=== PATIENT | female | born 1995 | race Caucasian/White ===

== ENCOUNTER 2017-01-16 20:03 | Emergency (ER) | payer SELFPAY ==
--- NOTE | 2017-01-16 20:41 | ER Document Report ---
ED Medical Screen (RME) - General Stated Complaint: FALL,KNEE PAIN Time seen by provider: 20:36 Notes: Patient states she fell on her left knee last night. Ice packs helped some and patient has taken ibuprofen which has provided little relief. I have greeted and performed a rapid initial assessment of this patient. A comprehensive ED assessment and evaluation of the patient, analysis of test results and completion of the medical decision making process will be conducted by additional ED providers. - Related Data Allergies/Adverse Reactions: No Known Allergies Allergy (Verified 01/16/17 20:39) Past Medical History - Immunizations Hx Diphtheria, Pertussis, Tetanus Vaccination: Yes Physical Exam - Extremities Notes: Pain to his left medial knee on palpation. Pain with ROM.
--- NOTE | 2017-01-16 22:21 | ER Document Report ---
HPI - HPI Patient complains to provider of: knee pain Pain Level: 4 Context: Patient is a 21-year-old female presents by Department complaining of acute knee pain. Patient states that she has a concert last evening when she was standing and dancing when she fell pain in her left knee gave out. She describes the motion is more of a swaying. Admits to pain on the outside of her left knee. Patient admits to previous tear that did not require surgery on the medial meniscus of the left knee. Patient has been taking [id number] ibuprofen using ice and elevating as much as she can. Able to bear weight able to flex and extend the knee but with pain. - REPRODUCTIVE LMP: 01/12/17 Reproductive: DENIES: : - DERM Skin Color: Normal, [place] Past Medical History - Social History Smoking Status: Never Smoker Chew tobacco use (# tins/day): No Frequency of alcohol use: Social Drug Abuse: None Family History: Reviewed & Not Pertinent Renal/ Medical History: Denies: Hx Peritoneal Dialysis - Immunizations Hx Diphtheria, Pertussis, Tetanus Vaccination: Yes Vertical Provider Document - CONSTITUTIONAL Agree With Documented VS: Yes Exam Limitations: No Limitations General Appearance: WD/WN, No Apparent Distress - INFECTION CONTROL TRAVEL OUTSIDE OF THE [place] IN LAST 30 DAYS: No - RESPIRATORY O2 Sat by Pulse Oximetry: 97 - CARDIOVASCULAR Pulses: Normal: Popliteal, Dorsalis pedis - MUSCULOSKELETAL/EXTREMETIES Musculoskeletal/Extremeties: MAEW, FROM, Tender - On the aspect of the left knee , No Edema. negative: Eccymosis Notes: Negative anterior and posterior drawer. Negative varus and valgus for pain to palpation of the lateral aspect of the knee. Positive Lyndon's test of medial aspect. Negative Homans - NEURO Level of Consciousness: Awake, Alert, Appropriate Motor/Sensory: No Motor Deficit, No Sensory Deficit - DERM Integumentary: Warm, Dry, No Rash Course - Re-evaluation Re-evalutation: 01/16/17 22:17 Patient is a 20-year-old female is admitted in stable, no acute distress and afebrile. Concern today for internal knee injury. Will discharge patient home with crutches with instructions for elevation, ice and anti-inflammatories. Can follow-up with orthopedics - Vital Signs Vital signs: Temp Pulse Resp BP Pulse Ox 97.8 F 105 H 20 156/105 H 97 03/03/17 20:39 01/16/17 20:39 01/16/17 20:39 01/16/17 20:39 01/16/17 20:39 - Diagnostic Test Radiology reviewed: Image reviewed, Reports reviewed Discharge - Discharge Clinical Impression: Knee pain Qualifiers: Laterality: left Chronicity: acute Qualified Code(s): M25.562 - Pain in left knee Condition: Good Disposition: HOME, SELF-CARE Instructions: Suspected Internal Knee Injury ([facility]), Use of Crutches ([facility]), Ice & Elevation ([facility]), Sprained Knee ([facility]) Prescriptions: Ibuprofen [Motrin 800 mg Tablet] 800 mg PO Q8HP PRN #30 tab PRN Reason: Forms: Elevated Blood Pressure, Return to Work, Special Work Note Referrals: ORTHOPEDICS [Provider Group] - Follow up as needed
[2017-01-16 23:03] VITALS: BP 122/68
== END 2017-01-16 23:02 | disposition home or self-care (01) ==
LOC: ER 20:03
DX: M25.562 Pain in left knee (principal); W19.XXXA Unspecified fall, initial encounter
CPT/HCPCS: 99283

== ENCOUNTER 2017-07-28 08:06 | Emergency (ER) | payer SELFPAY ==
--- NOTE | 2017-07-28 08:41 | ER Document Report ---
ED GI/ - General Chief Complaint: Flank Pain Stated Complaint: LOW BACK PAIN Time Seen by Provider: 07/28/17 08:29 Notes: Patient is a 21-year-old female presents emergency department complaining of sudden onset left flank pain started about 2 AM that woke her up. Patient describes her pain as a constant underlying ache with intermittent sharp stabbing pain. Patient states that since last Thursday she has been having urinary frequency, hesitancy that initially resolved with [id number] Azo but then returned yesterday more severe. She denies any fever, chills, nausea, vomiting, diarrhea, constipation. She does admit to left flank pain and suprapubic pain worse on the left side. She denies any hematuria or pyuria. She does admit to vaginal discharge that she noticed yesterday that is thick and clumpy. Patient states that she is newly sexually active she denies any past history of sexually transmitted diseases, states that her sexual partner denies any history of sexually transmitted disease and was not tested prior to their relationship. She states that her last menstrual period was July 04 of this year. She has never been . Denies any past medical history Past surgical history significant for tonsils and adenoids, ventilatory tubes as a child Social history denies any tobacco or drug use. Admits to occasional alcohol use. She is an employee at [employer]. Does not have a primary care provider, denies any allergies TRAVEL OUTSIDE OF THE [place] IN LAST 30 DAYS: No - Related Data Allergies/Adverse Reactions: No Known Allergies Allergy (Verified 07/28/17 08:12) Past Medical History - Social History Smoking Status: Never Smoker Chew tobacco use (# tins/day): No Frequency of alcohol use: Occasional Drug Abuse: Marijuana Family History: Reviewed & Not Pertinent Renal/ Medical History: Denies: Hx Peritoneal Dialysis Surgical Hx: Negative - Immunizations Hx Diphtheria, Pertussis, Tetanus Vaccination: Yes Review of Systems - Review of Systems Notes: REVIEW OF SYSTEMS: CONSTITUTIONAL : Denies fever, chills, or sweats. Denies recent illness. EENT: Denies eye, ear, throat, or mouth pain or symptoms. Denies nasal or sinus congestion or discharge. Denies throat, tongue, or mouth swelling or difficulty swallowing. CARDIOVASCULAR: Denies chest pain. Denies palpitations or racing or irregular heart beat. Denies ankle edema. RESPIRATORY: Denies cough, cold, or chest congestion. Denies shortness of breath, difficulty breathing, or wheezing. GASTROINTESTINAL: Denies abdominal pain or distention. Denies nausea, vomiting , or diarrhea. Denies blood in vomitus, stools, or per rectum. Denies black, tarry stools. Denies constipation. GENITOURINARY: See HPI FEMALE GENITOURINARY: See HPI MUSCULOSKELETAL: Denies any muscle spasms, difficulty walking, extremity pain SKIN: Denies rash, lesions or sores. HEMATOLOGIC : Denies easy bruising or bleeding. LYMPHATIC: Denies swollen, enlarged glands. NEUROLOGICAL: Denies confusion or altered mental status. Denies passing out or loss of consciousness. Denies dizziness or lightheadedness. Denies headache. Denies weakness or paralysis or loss of use of either side. Denies problems with gait or speech. Denies sensory loss, numbness, or tingling. Denies seizures. PSYCHIATRIC: Denies anxiety or stress. Denies depression, suicidal ideation, or homicidal ideation. ALL OTHER SYSTEMS REVIEWED AND NEGATIVE. Dictation was performed using [employer] voice recognition software Physical Exam - Vital signs Vitals: Temp Pulse Resp BP Pulse Ox 98.0 F 104 H 18 185/83 H 96 07/28/17 08:10 07/28/17 08:10 07/28/17 08:10 07/28/17 08:10 07/28/17 08:10 - Notes Notes: PHYSICAL EXAM GENERAL: Alert, interacts well. HEAD: Normocephalic, atraumatic. EYES: Pupils equal, round, and reactive to light. Extraocular movements intact. ENT: Oral mucosa moist, tongue midline. NECK: Full range of motion. Supple. Trachea midline. LUNGS: Clear to auscultation bilaterally, no wheezes, rales, or rhonchi. No respiratory distress. HEART: Regular rate and rhythm. No murmurs, gallops, or rubs. ABDOMEN: Soft, obese nondistended, mild suprapubic tenderness. No guarding, rebound, or rigidity.. Bowel sounds present in all 4 quadrants. FEMALE : Normal external exam. No evidence of lesions, lacerations, bruising or vesicles. Speculum exam normal cervix closed. Evidence of white thick vaginal discharge without odor. No evidence of lesions. No vaginal bleeding. Bimanual exam normal no cervical motion tenderness. No adnexal mass or adnexal tenderness. Back: EXTREMITIES: Moves all 4 extremities spontaneously. No edema, radial and dorsalis pedis pulses 2/4 bilaterally. No cyanosis. Mild left CVA tenderness, negative for right CVA tenderness, no paraspinous muscle tenderness or spinous process tenderness, deformities, step-offs NEUROLOGICAL: Alert and oriented x4. Normal speech. PSYCH: Normal affect, normal mood. SKIN: Warm, dry, normal turgor. No rashes or lesions noted. Course - Re-evaluation Re-evalutation: 07/28/17 11:34 Patient is a 21-year-old female who is hemodynamically stable, no acute distress and afebrile. CBC stable without any evidence for leukocytosis or anemia. White blood cell count of 12.1 without evidence of left shift. BMP stable without any evidence of renal injury. Urinalysis indicates pyelonephritis given presence of white blood cell clumps. Beta-hCG is negative. Patient tolerating p.o. without any difficulty. Patient to be discharged home on p.o. antibiotics and coverage for yeast given yeast present on wet mount. At this time patient requesting to be discharged and called for follow-up regarding chlamydia and gonorrhea test. Declining treatment at this time. Discussed with patient strict return precautions. She agrees with plan. - Vital Signs Vital signs: Temp Pulse Resp BP Pulse Ox 98.0 F 104 H 18 185/83 H 96 07/28/17 08:10 07/28/17 08:10 07/28/17 08:10 07/28/17 08:10 07/28/17 08:10 - Laboratory Result Diagrams: 07/28/17 10:15 07/28/17 10:15 Laboratory results interpreted by me: 07/28/17 07/28/17 08:33 10:15 WBC 12.1 H Seg Neutrophils % 79.8 H Lymphocytes % 11.7 L Absolute Neutrophils 9.7 H Urine Protein 100 H Urine Blood MODERATE H Ur Leukocyte Esterase LARGE H Discharge - Discharge Clinical Impression: Pyelonephritis, Vaginal candidiasis Condition: Good Disposition: HOME, SELF-CARE Additional Instructions: PYELONEPHRITIS: Your evaluation shows evidence of pyelonephritis. This is an infection in the kidney. Typical symptoms are fever, pain in the flank, pain on urination, and frequent urination. Many cases of pyelonephritis can be treated at home. Hospital care may be necessary for patients who are very ill, or elderly or . Pyelonephritis is treated with antibiotics. Be sure to take all the medication as prescribed. Drink plenty of liquids (about three quarts per day) . You may take acetaminophen for fever. You should feel significantly improved within two days. You should have a recheck of your urine in about one week to insure that the infection is gone. Return for a re-examination if your symptoms worsen in any way -- such as high fever, shaking chills, severe weakness or dizziness, severe pain, or inability to pass your urine. ANTIBIOTIC THERAPY You have been given an antibiotic prescription. It's important that you take all the medication, unless instructed otherwise by your physician. Failure to complete the entire course can result in relapse of your condition. Common side effects of antibiotics include nausea, intestinal cramping, or diarrhea. Women may develop vaginal yeast infections, and babies can get yeast (thrush) in the mouth following the use of antibiotics. Contact your physician if you develop significant side effects from this medication. Allergy to this antibiotic can result in hives, wheezing, faintness, or itching. If symptoms of allergy occur, stop the medication and call the doctor. CIPROFLOXACIN: You have been given an antibacterial agent, ciprofloxacin (Cipro). This medicine is not related to the penicillins, sulfas, cephalosporins, or tetracyclines. It is often given to patients who are allergic to these drugs. It has been chosen for you either because other drugs are not appropriate, or because of the nature of your problem. Cipro should not be taken with antacids, as these can decrease its effectiveness. It can be taken without regard to meals. CIPRO SHOULD NOT BE TAKEN BY CHILDREN, NURSING WOMEN, OR WOMEN. Although Cipro is usually well-tolerated, common side effects can include nausea and diarrhea. Contact your doctor if you experience any unusual symptoms while on this medication, such as joint pain or swelling, shortness of breath, wheezing, faintness, or hives. USE OF ACETAMINOPHEN (Tylenol): Acetaminophen may be taken for pain relief or fever control. It's much safer than aspirin, offering a wider range of "safe" dosages. It is safe during . Some brand names are Tylenol, Panadol, Datril, Anacin 3, Tempra, and Liquiprin. Acetaminophen can be repeated every four hours. The following are maximum recommended dosages: >89 pounds or adults 650 mg to 900 mg Acetaminophen can be repeated every four hours. Maximum dose not to exceed 4000 mg a day. ORAL NARCOTIC MEDICATION: You have been given a prescription for pain control. This medication is a narcotic. It's best taken with food, as nausea can result if taken on an empty stomach. Don't operate machinery or drive within six hours of taking this medication. Do not combine this medicine with alcohol, or with any medication which can cause sedation (such as cold tablets or sleeping pills) unless you get permission from the physician. Narcotics tend to cause constipation. If possible, drink plenty of fluids and eat a diet high in fiber and fruits. Please be aware that prescription narcotics also have the potential for abuse. People become addicted to these medications because of the general sense of wellbeing that they induce. This feeling along with a significant reduction in tension, anxiety, and aggression provides a stimulating seductive quality to these drugs. Once your pain is under control, we encourage you to discard your unused narcotics. FOLLOW-UP CARE: If you have been referred to a physician for follow-up care, call the physician s office for an appointment as you were instructed or within the next two days. If you experience worsening or a significant change in your symptoms, notify the physician immediately or return to the Emergency Department at any time for re-evaluation. Vaginal Yeast Infection You have evidence of a yeast infection -- called "karl." A vaginal yeast infection often causes itching and discharge. While not dangerous, it can be very unpleasant. A yeast infection often follows the use of powerful antibiotics. It is more likely to occur in diabetics. The treatment now is usually a single pill of Diflucan, but also an antifungal cream or suppository may be used for a few days. You do not need to avoid sexual intercourse. Recurrences are common. You can make a recurrence less likely by wearing cotton underwear and avoiding tight clothing. For mild recurrences, you can try [id number] creams or suppositories that are made specifically for yeast. If the symptoms do not resolve, you should follow up for re-examination. Sometimes treatment of the sexual partner is necessary if infections are recurrent. Prescriptions: Ciprofloxacin HCl [Cipro 500 mg Tablet] 500 mg PO BID #14 tablet Fluconazole [Diflucan] 150 mg PO ONCE PRN #1 tablet PRN Reason: Forms: Elevated Blood Pressure Referrals: [facility] [Provider Group] - Follow up as needed
[2017-07-28 09:29] LABS: APPEARANCE,URINE CLOUDY; BILIRUBIN,URINE NEGATIVE (NEGATIVE); GLUCOSE, URINE NEGATIVE (NEGATIVE); KETONES,URINE NEGATIVE (NEGATIVE); LEUKOCYTE ESTERASE,URINE LARGE (NEGATIVE); NITRITE,URINE NEGATIVE (NEGATIVE); PROTEIN,URINE 100 mg/dL (NEGATIVE); URINE SPECIFIC GRAVITY 1.008; UROBILINOGEN,URINE NEGATIVE mg/dL (<2.0)
[2017-07-28 10:31] LABS: ABSOLUTE EOSINOPHILS # (AUTO) 0.1 10^3/uL (0.0-0.6); ABSOLUTE LYMPHOCYTES (AUTO) 1.4 10^3/uL (0.5-4.7); ABSOLUTE MONOCYTES (AUTO) 0.8 10^3/uL (0.1-1.4); ABSOLUTE NEUT (AUTO) 9.7 10^3/uL (1.7-8.2); BASOPHILS % (AUTO) 0.4 % (0-2); EOSINOPHILS % (AUTO) 1.1 % (0-6); HEMATOCRIT 39.1 % (36.0-47.0); HEMOGLOBIN 13.3 g/dL (12.0-15.5); HGB HCT DIFFERENCE 0.8; LYMPHOCYTES % (AUTO) 11.7 % (13-45); MEAN CORPUSCULAR VOLUME 88 fl (80-97); RED BLOOD COUNT 4.42 10^6/uL (3.72-5.28); SEGMENTED NEUTROPHILS % (AUTO) 79.8 % (42-78); WHITE BLOOD COUNT 12.1 10^3/uL (4.0-10.5)
[2017-07-28] MEDS ORDERED: ACETAMINOPHEN 325 MG TABLET PO ONE (10:55)
[2017-07-28 11:01] LABS: ANION GAP 11 (5-19); BLOOD UREA NITROGEN 12 mg/dL (7-20); CALCIUM 9.6 mg/dL (8.4-10.2); CARBON DIOXIDE 25 mmol/L (22-30); CHLORIDE 106 mmol/L (98-107); CREATININE RESULT 0.72 mg/dL (0.52-1.25); GLUCOSE 92 mg/dL (75-110); SODIUM 141.5 mmol/L (137-145)
[2017-07-28 11:32] LABS: CHLAM PCR NOT DETECTED (NOT DETECT)
[2017-07-28] MEDS ORDERED: ONDANSETRON ODT 4 MG TAB (6 TAB/DSPK) PO PRN (11:40)
[2017-07-28] MEDS ORDERED: HYDROCODONE/ACETAMINOPHEN 5-325 MG 6 TAB/DSPK PO PRN (11:40)
[2017-07-28 12:12] VITALS: BP 154/96
== END 2017-07-28 12:12 | disposition home or self-care (01) ==
LOC: ER 08:06
DX: N12 Tubulo-interstitial nephritis, not specified as acute or chronic (principal); B37.3 Candidiasis of vulva and vagina
CPT/HCPCS: 36415; 80048; 81001; 81025; 85025; 87210; 87491; 87591; 99284

== ENCOUNTER 2020-10-15 12:27 | Emergency (ER) | payer OTHER ==
--- NOTE | 2020-10-15 13:39 | ER Document Report ---
ED Head/Face/Scalp Injury - General Chief Complaint: Head Injury Stated Complaint: FALL/HEAD INJURY Time Seen by Provider: 10/15/20 13:31 Primary Care Provider: RONEN CASTRO FNP-C [Primary Care Provider] - Follow up in 3-5 days Mode of Arrival: Ambulatory Information source: Patient Notes: 24-year-old female presents to ED for complaint of a box of apples falling on her head yesterday. She does have some tenderness to the top back of her head no soft spots no loss of consciousness no change in orientation. She states she did did get nauseated today and had a little bit of emesis but nothing projectile. She has full range of motion to both shoulders. She states the box apples fell from her head onto her shoulder. He is a little sore on some of her muscles but other than that no other changes. She states she was concerned she might have a concussion. I did explain to her the symptoms of a concussion and I will give her the written report of the concussions but I do not feel she has a concussion at this time. She is completely oriented. Constitutional: Negative for fever. HENT: Due to the top back of her head no knots no swelling no soft spots no obvious fractures Eyes: Negative for visual changes. Cardiovascular: Negative for chest pain. Respiratory: Negative for shortness of breath. Gastrointestinal: Negative for abdominal pain, vomiting or diarrhea. Genitourinary: Negative for dysuria. Musculoskeletal: Tenderness to the left shoulder but full range of motion with no difficulty. Tenderness to the front of the left shoulder. Skin: Negative for rash. Neurological: She states she has had a headache since something fell on her head will give ibuprofen and Zofran 10 point ROS negative except as marked above and in HPI. PHYSICAL EXAMINATION: GENERAL: Well-appearing, well-nourished and in no acute distress. HEAD: Tenderness to the top back of her head EYES: Pupils equal round extraocular movements intact, conjunctiva are normal. ENT: Nares patent NECK: Normal range of motion LUNGS: No respiratory distress Musculoskeletal: Normal range of motion and is to the front of her left shoulder NEUROLOGICAL: Normal speech, normal gait. Headache since the box of apples fell on her head. No change in orientation or speech pupils equal and react to light walks with a even steady gait PSYCH: Normal mood, normal affect. SKIN: Warm, Dry, normal turgor, no rashes or lesions noted. TRAVEL OUTSIDE OF THE [place] IN LAST 30 DAYS: No - HPI Patient complains to provider of: Injury, Pain. No: Contusion, Swelling Injury to: Head, Other - Shoulder Location of problem: Head, Other - Shoulder Occurred: Yesterday Where: Work Timing: Still present Context: Other - Headache and tenderness to left shoulder. denies: Laceration Loss consciousness: No loss of consciousness Remembers: Injury, Coming to hospital - Related Data Allergies/Adverse Reactions: No Known Allergies Allergy (Verified 07/28/17 08:12) Past Medical History - General Information source: Patient - Social History Smoking Status: Current Every Day Smoker - Vape Frequency of alcohol use: Social Drug Abuse: Marijuana Occupation: [employer] Lives with: Friend Family History: Reviewed & Not Pertinent Patient has suicidal ideation: No Patient has homicidal ideation: No - Past Medical History Cardiac Medical History: Reports: None Pulmonary Medical History: Reports: None EENT Medical History: Reports: None Neurological Medical History: Reports: None Endocrine Medical History: Reports: None Renal/ Medical History: Reports: None Malignancy Medical History: Reports: None GI Medical History: Reports: None Musculoskeletal Medical History: Reports None Skin Medical History: Reports None Psychiatric Medical History: Reports: None Traumatic Medical History: Reports: None Infectious Medical History: Reports: None Past Surgical History: Reports: Hx Adenoidectomy, Hx Myringotomy, Hx Tonsillectomy - Immunizations Immunizations up to date: Yes Hx Diphtheria, Pertussis, Tetanus Vaccination: Yes - May 2018 Physical Exam - Vital signs Vitals: Temp Pulse Resp BP Pulse Ox 98.1 F 102 H 16 182/76 H 99 10/15/20 12:37 10/15/20 12:37 10/15/20 12:37 10/15/20 12:37 10/15/20 12:37 Course - Vital Signs Vital signs: Temp Pulse Resp BP Pulse Ox 98.1 F 97 19 179/89 H 100 10/15/20 14:09 10/15/20 14:09 10/15/20 14:09 10/15/20 14:09 10/15/20 14:09 Discharge - Discharge Clinical Impression: Head injury Qualifiers: Encounter type: initial encounter Qualified Code(s): S09.90XA - Unspecified injury of head, initial encounter Contusion of left shoulder Qualifiers: Encounter type: initial encounter Qualified Code(s): S40.012A - Contusion of left shoulder, initial encounter Disposition: HOME, SELF-CARE Additional Instructions: HEAD INJURY PRECAUTIONS: At this point, there is no evidence that your head injury is serious. Observation is necessary, however. Take only clear liquids for the first few hours, unless told otherwise by the doctor. If no pain medication was prescribed, you may take acetaminophen according to the directions on the bottle. Do not take any medication that may alter your level of alertness (unless you've discussed it with the doctor first). Limit activity for the first 24 hours. Bed rest is best. During the first 24 hours, check to see approximately every two to three hours that the patient is easily arousable, responds normally, and can perform common tasks such as walking without difficulty. Contact your doctor or go to the hospital if any of the following things occur: Persistent vomiting, difficulty in arousing the patient, worsening or continued headache, or failure to improve as expected. Head injuries can cause symptoms that persist for a few days or even a few weeks. NECK INJURY (CERVICAL STRAIN): You have a neck strain. This is an injury to the muscles and ligaments in the neck. There is no evidence of a fracture of the neck bones. Also, no injury to the spinal cord or nerve roots was detected. Usually, stiffness and pain INCREASE for the first 24-48 hours after the injury. The pain will gradually resolve and the neck will become more mobile. Most patients are back at work or school within a few days. Typically, complete healing takes about two or three weeks. The usual initial treatment is rest and cold packs. A neck collar may be placed to keep the muscles of the neck at rest. Antiinflammatory and muscle relaxing medication are often used to reduce the spasm and irritation. You should call the doctor, or go to the hospital, if you develop numbness or weakness in any extremity, problems with your bladder or bowel, or pain radiating down the arms. CONTUSION: Your injury has resulted in a contusion -- a crushing of the deep tissues. No injury to important structures was detected during the physician's exam. Contusions vary in the amount of pain they cause, and in the length of time re quired for healing. Typically, the area will become bruised, and will remain painful to touch for two or three weeks. However, most patients are back to working and playing within a few days. After the initial period of rest and cold-packs, your symptoms (together with the doctor's recommendations) will determine how rapidly you can get back to full activity. Usually this means "do what feels okay, but don't do things that hurt." If re-examination was recommended, it's important to follow up as instructed. Call the doctor or return any time if pain increases, if swelling becomes severe, if you develop numbness or weakness in an injured extremity, or if any other alarming symptoms occur. Concussion You not suffer a concussion -- a temporary loss of certain brain functions due to a mild brain injury. The recovery is usually rapid and complete. The temporary problems occurring with a concussion can include loss of consciousness, dizziness, nausea, vomiting, and confusion. Repeat concussions can cause brain damage. In the future, avoid activities that will cause a blow to your head. Wear a helmet for sports such as snowboarding, biking, or skating. It's important that someone be with you for the first 24 hours. During this time, do not exercise or drive a vehicle. Do not take any pain medication stronger than acetaminophen unless prescribed by the physician. Any significant changes should be reported immediately to the physician. Signs of a problem may include: (1) Mental confusion (2) Incoordination or staggering (3) Repeated or forceful vomiting (4) Clear or bloody drainage from ear, mouth, or nose (5) Severe headache, not relieved by acetaminophen or prescribed pain medication (6) Failure to improve in 24 hours USE OF TYLENOL (ACETAMINOPHEN): Acetaminophen may be taken for pain relief or fever control. It's much safer than aspirin, offering a wider range of "safe" dosages. It is safe during . Some brand names are Tylenol, Panadol, Datril, Anacin 3, Tempra, and Liquiprin. Acetaminophen can be repeated every four hours. The following are maximum recommended dosages: WEIGHT Dose Drops Elixir Chewable(80mg) (LBS.) drprs=droppers tsp=teaspoon 6 40 mg 0.4 ml (1/2) 6-11 80 mg 0.8 ml (full) tsp 1 tab 12-16 120 mg 1 1/2 drprs 3/4 tsp 1 1/2 tabs 17-23 160 mg 2 drprs 1 tsp 2 tabs 24-30 240 mg 3 drprs 1 1/2 tsp 3 tabs 30-35 320 mg 2 tsp 4 tabs 36-41 360 mg 2 1/4 tsp 4 1/2 tabs 42-47 400 mg 2 1/2 tsp 5 tabs 48-53 480 mg 3 tsp 6 tabs 54-59 520 mg 3 1/4 tsp 6 1/2 tabs 60-64 560 mg 3 1/2 tsp 7 tabs 65-70 600 mg 3 3/4 tsp 7 1/2 tabs 71-76 640 mg 4 tsp 8 tabs 77-82 720 mg 4 1/2 tsp 9 tabs 83-88 800 mg 5 tsp 10 tabs >89 pounds or adults 650 mg to 900 mg Acetaminophen can be repeated every four hours. Maximum dose not to exceed 4000 mg a day. These maximum recommended dosages are slightly higher than the dosages written on the product container, but these dosages are very safe and below the toxic dosage for acetaminophen. ICE PACKS: Apply ice packs frequently against the painful area. Many different schedules are recommended, such as "20 minutes on, 20 minutes off" or "one hour ice, two hours rest." If you need to work, you may need to go longer between ice treatments. You should plan to have the area ice packed AT LEAST one fourth of the time. The ice should be applied over the wrap, tape, or splint, or over a layer of cloth -- not directly against the skin. Some ice bags have a built-in cloth and can be put directly on the skin. WARM PACKS: After approximately two days, apply gentle heat (such as a heating pad or hot water bottle) for about 20 to 30 minutes about every two hours -- at least four times daily. Warmth and elevation will help you make a more rapid recovery, and will ease the pain considerably. Do not use HOT heat, and never apply heat for longer than 30 minutes. The continuous heat can invisibly damage skin and muscles -- even when no burn is seen on the surface. Damaged muscles can make you MORE sore. Ibuprofen Ibuprofen is an excellent, safe drug for pain control. In addition, it has potent antiinflammatory effects which are beneficial, especially in the treatment of injuries, arthritis, or tendonitis. It's best to take ibuprofen with food. Persons with ulcer disease or allergy to aspirin should notify their physician of this before taking ibuprofen. Take the medication exactly as prescribed. Don't take additional doses unless instructed to do so by your doctor. If you develop wheezing, shortness of breath, hives, faintness, stomach pain, vomiting, or dark black stools, return for re-evaluation at once. Antinausea Medication You have been given a medication to suppress nausea and vomiting. This type of medication can be given as a shot, pill, or suppository. It will usually last for many hours. Pills and shots usually last six to eight hours, suppositories last about 12 hours. For the typical illness, only one or two doses of the medication may be necessary. Mild lightheadedness may occur. This type of medicine can cause drowsiness. Do not drive or operate dangerous machinery while under its influence. Do not mix with alcohol. See your doctor at once if you have muscle spasms or tightness, or uncontrollable motions (particularly of the neck, mouth, or jaw). Persistent vomiting or severe lightheadedness should also be evaluated by the physician. FOLLOW-UP CARE: If you have been referred to a physician for follow-up care, call the physicians office for an appointment as you were instructed or within the next two days. If you experience worsening or a significant change in your symptoms, notify the physician immediately or return to the Emergency Department at any time for re-evaluation. Prescriptions: Ondansetron [Zofran Odt 4 mg Tablet] 1 tab PO Q6H #15 tab.rapdis Forms: Elevated Blood Pressure, Smoking Cessation Education, Return to Work Referrals: RONEN CASTRO FNP-C [Primary Care Provider] - Follow up in 3-5 days
[2020-10-15] MEDS ORDERED: ONDANSETRON 4 MG TAB.RAPDIS PO ONE (13:45)
[2020-10-15] MEDS ORDERED: IBUPROFEN 600 MG TABLET PO ONE (13:45)
[2020-10-15 14:11] VITALS: BP 179/89
== END 2020-10-15 14:05 | disposition home or self-care (01) ==
LOC: ER 12:27
DX: S09.90XA Unspecified injury of head, initial encounter (principal); S40.012A Contusion of left shoulder, initial encounter; W20.8XXA Other cause of strike by thrown, projected or falling object, initial encounter; Y93.89 Activity, other specified; Y99.0 Civilian activity done for income or pay; R11.2 Nausea with vomiting, unspecified; F17.290 Nicotine dependence, other tobacco product, uncomplicated; F12.10 Cannabis abuse, uncomplicated
CPT/HCPCS: 99283; S0119

== ENCOUNTER 2020-12-12 12:15 | Emergency (ER) | payer OTHER ==
[2020-12-12 12:39] VITALS: BP 157/104
--- NOTE | 2020-12-12 13:13 | ER Document Report ---
ED General - General Chief Complaint: Laceration Stated Complaint: LACERATION/LEFT 4TH DIGIT Time Seen by Provider: 12/12/20 12:38 Primary Care Provider: RONEN CASTRO FNP-C [Primary Care Provider] - Follow up as needed TRAVEL OUTSIDE OF THE [place] IN LAST 30 DAYS: No - HPI Notes: 25-year-old female presents to ED for evaluation of avulsion laceration injury to the left fourth digit sustained earlier today. Reports she was cutting onions when the knife slipped. Notes that she attempted to irrigate the area and applied pressure however she was bleeding through. Patient states she did lose the distal aspect of her nail bed. Notes her last tetanus vaccine was 2 years ago. Denies paresthesias or difficulties with range of motion. Endorses no other complaints at this time. - Related Data Allergies/Adverse Reactions: No Known Allergies Allergy (Verified 07/28/17 08:12) Past Medical History - Social History Smoking Status: Never Smoker Frequency of alcohol use: Occasional Drug Abuse: Marijuana Family History: Reviewed & Not Pertinent - Past Medical History Cardiac Medical History: Reports: Hx Hypertension Renal/ Medical History: Denies: Hx Peritoneal Dialysis Past Surgical History: Reports: Hx Adenoidectomy, Hx Myringotomy, Hx Tonsillectomy - Immunizations Immunizations up to date: Yes Hx Diphtheria, Pertussis, Tetanus Vaccination: Yes - May 2018 Review of Systems - Review of Systems Notes: Constitutional: Negative for fever. HENT: Negative for sore throat. Eyes: Negative for visual changes. Cardiovascular: Negative for chest pain. Respiratory: Negative for shortness of breath. Gastrointestinal: Negative for abdominal pain, vomiting or diarrhea. Genitourinary: Negative for dysuria. Musculoskeletal: Negative for back pain. Skin: Negative for rash. + for avulsion injury to hand. Neurological: Negative for headaches, weakness or numbness. 10 point ROS negative except as marked above and in HPI. Physical Exam - Vital signs Vitals: Temp Pulse Resp BP Pulse Ox 97.6 F 89 20 157/104 H 100 12/12/20 12:37 12/12/20 12:37 12/12/20 12:37 12/12/20 12:37 12/12/20 12:37 General: No acute distress. Alert and oriented x3. Skin: No jaundice, pallor, or rashes. Warm and dry. Musculoskeletal: Left Hand: Avusion laceration to the distal aspect of the 4th digit. Nailbed involved. Good hemostasis. No swelling, erythema, ecchymosis, deformities or rashes. Strength and sensation is intact. Mild tenderness to palpation along laceration. No tenderness about anatomical snuffbox. Digits 1-5 with good flexion and extension about MCP, PIP and DIP joints. Brisk capillary refill. Radial pulses 2+ bilaterally. Wrist nontender with good range of motion. Neuro: GCS 15. Course - Re-evaluation Re-evalutation: 12/12/20 14:12 25-year-old female presents to ED for evaluation of left fourth digit avulsion laceration. Patient did this on a knife earlier today. On exam, patient has avulsion injury to the distal aspect of the nailbed in the finger. There is no area that can be sutured. No evidence of foreign bodies is present. Was advised of these findings. This was thoroughly irrigated and saline and Hibiclens. I inspected the wound and determined that this could be pressure dressed with foam and a splint. Patient is advised to keep the dressing intact for 2 days before soaking it off. Advised to return for any new or worsening symptoms. She is advised to apply bacitracin to the area over top and avoid soaking the wound after the dressing is removed. Patient is encouraged to return to the ED for any new or worsening symptoms and follow-up routinely with her primary care provider. Was cautioned about her blood pressure. She does take antihypertensives however has not picked up her most recent refill from the pharmacy. Patient was cautioned to do this today and states that she will picker packer the medication after she leaves the ER. Understands this course of management and is agreeable with care plan. 12/12/20 15:10 - Vital Signs Vital signs: Temp Pulse Resp BP Pulse Ox 97.6 F 89 20 157/104 H 100 12/12/20 12:37 12/12/20 12:37 12/12/20 12:37 12/12/20 12:37 12/12/20 12:37 - Laboratory Results Critical Laboratory Results Reviewed: No Critical Results - Radiology Results Critical Radiology Results Reviewed: No Critical Results Discharge - Discharge Clinical Impression: Finger laceration Qualifiers: Encounter type: initial encounter Finger: ring finger Damage to nail status: with damage Foreign body presence: unspecified Laterality: left Qualified Code(s): S61.315A - Laceration without foreign body of left ring finger with damage to nail, initial encounter Disposition: HOME, SELF-CARE Instructions: Antibiotic Ointment Protection ([facility]), Laceration Care ([facility]) Forms: Return to Work Referrals: RONEN CASTRO FNP-C [Primary Care Provider] - Follow up as needed
== END 2020-12-12 13:22 | disposition home or self-care (01) ==
LOC: ER 12:15
DX: S61.315A Laceration without foreign body of left ring finger with damage to nail, initial encounter (principal); W26.0XXA Contact with knife, initial encounter; Y93.G1 Activity, food preparation and clean up; Y99.0 Civilian activity done for income or pay; I10 Essential (primary) hypertension
CPT/HCPCS: 99282